=== PATIENT | male | born 1965 | race Caucasian/White ===

== ENCOUNTER 2018-10-21 18:17 | Emergency (ER) | payer OTHER ==
--- NOTE | 2018-10-21 18:46 | EDM.PDOC ---
ED HPI GENERAL MEDICAL PROBLEM - General Chief Complaint: Laceration Stated Complaint: UNKNOWN Time Seen by Provider: 10/21/18 18:30 Source of Information: Reports: Patient History Limitations: Reports: No Limitations - History of Present Illness INITIAL COMMENTS - FREE TEXT/NARRATIVE: HISTORY AND PHYSICAL: History of present illness: Patient is a 53-year-old male here with complaint of left toe injury. He states that he was in the shower when his foot slipped and he cut his left toe on the drain. He is not sure if there is a laceration or if the toenail itself lifted up. He is on plavix and states it wouldn't stop bleeding so he wrapped it in a towel and came to the ED. He is otherwise in his usual state of health without any complaints. He is UTD on tetanus. Review of systems: As per history of present illness and below otherwise all systems reviewed and negative. Past medical history: As per history of present illness and as reviewed below otherwise noncontributory. Surgical history: As per history of present illness and as reviewed below otherwise noncontributory. Social history: No reported history of drug or alcohol abuse. Family history: As per history of present illness and as reviewed below otherwise noncontributory. Physical exam: General: Patient sitting comfortably in no acute distress and nontoxic appearing HEENT: Atraumatic, normocephalic, pupils reactive, negative for conjunctival pallor or scleral icterus, mucous membranes moist, throat clear, neck supple, nontender, trachea midline. No meningeal signs. Lungs: Clear to auscultation, breath sounds equal bilaterally, chest nontender. Heart: S1S2, regular, negative for clicks, rubs, or overt murmur. Abdomen: Soft, nondistended, nontender. Negative for masses or hepatosplenomegaly. Negative for costovertebral tenderness. No rigidity, rebound , guarding. Pelvis: Stable nontender. Genitourinary: Deferred. Rectal: Deferred. Extremities: The right toenail appears to be avulsed, there is no obvious laceration. It is no longer bleeding. negative for cords or calf pain. Neurovascular unremarkable. Neuro: Awake, alert, oriented. Cranial nerves II through XII unremarkable. Cerebellum unremarkable. Motor and sensory unremarkable throughout. Exam nonfocal. Notes: Diagnostics: None Therapeutics: Compression bandage Prescriptions: None Impression: Toenail avulsion Plan: 1. Follow up with primary care provider 2. Return to ED as needed as discussed Definitive disposition and diagnosis as appropriate pending reevaluation and review of above. Right Big Toe Pain Score (Numeric/FACES): 2 - Related Data Allergies Allergy/AdvReac Type Severity Reaction Status Date / Time Penicillins Allergy Rash Verified 10/21/18 18:23 Sulfa (Sulfonamide Allergy Rash Verified 10/21/18 18:23 Antibiotics) Home Meds: Home Meds Cetirizine [ZyrTEC] 10 mg PO DAILY 10/21/18 [History] Furosemide [Lasix] 40 mg PO DAILY 10/21/18 [History] Montelukast Sodium [Singulair] 10 mg PO DAILY 10/21/18 [History] Omeprazole Magnesium [Prilosec Otc] 20 mg PO DAILY 10/21/18 [History] Potassium Gluconate [Potassium] 600 mg PO DAILY 10/21/18 [History] Propranolol [Inderal] 10 mg PO DAILY 10/21/18 [History] Rivaroxaban [Xarelto] 10 mg PO DAILY 10/21/18 [History] atorvaSTATin Calcium [Lipitor] 40 mg PO DAILY 10/21/18 [History] buPROPion [Wellbutrin] 100 mg PO BID 10/21/18 [History] ED ROS GENERAL - Review of Systems Review Of Systems: ROS reveals no pertinent complaints other than HPI. ED EXAM, SKIN/RASH Exam: See Below (see dictation) Course - Vital Signs Last Recorded V/S: Last Vital Signs Temp 98.0 F 10/21/18 18:24 Pulse 72 10/21/18 19:25 Resp 18 10/21/18 18:24 BP 156/97 H 10/21/18 19:25 Pulse Ox 94 L 10/21/18 19:25 Departure - Departure Time of Disposition: 18:45 Disposition: Home, Self-Care 01 Condition: Good Clinical Impression: Injury of toenail - Discharge Information Instructions: Nail Bed Injury, [id number] Referrals: PCP,None [Primary Care Provider] - Forms: ED Department Discharge Additional Instructions: The following information is given to patients seen in the emergency department who are being discharged to home. This information is to outline your options for follow-up care. We provide all patients seen in our emergency department with a follow-up referral. The need for follow-up, as well as the timing and circumstances, are variable depending upon the specifics of your emergency department visit. If you don't have a primary care physician on staff, we will provide you with a referral. We always advise you to contact your personal physician following an emergency department visit to inform them of the circumstance of the visit and for follow-up with them and/or the need for any referrals to a consulting specialist. The emergency department will also refer you to a specialist when appropriate. This referral assures that you have the opportunity for follow-up care with a specialist. All of these measure are taken in an effort to provide you with optimal care, which includes your follow-up. Under all circumstances we always encourage you to contact your private physician who remains a resource for coordinating your care. When calling for follow-up care, please make the office aware that this follow-up is from your recent emergency room visit. If for any reason you are refused follow-up, please contact the [facility] Emergency Department at and asked to speak to the emergency department charge nurse. [facility] Primary Care [address] [place] [address] [id number] [address] [address] 1. Follow up with primary care provider 2. Return to ED as needed as discussed
== END 2018-10-21 19:25 | disposition home or self-care (01) ==
LOC: MW.ED 18:17
DX: S91.209A Unspecified open wound of unspecified toe(s) with damage to nail, initial encounter (principal); Z88.0 Allergy status to penicillin; Z88.2 Allergy status to sulfonamides; Z79.899 Other long term (current) drug therapy; W18.40XA Slipping, tripping and stumbling without falling, unspecified, initial encounter
CPT/HCPCS: 99282

== ENCOUNTER 2019-08-05 13:33 | Emergency (ER) | payer OTHER ==
[2019-08-05] MEDS ORDERED: Diphtheria,Pertussis(Acell),Tetanus Vaccine 0.5 ML Syringe IM ONE (13:49)
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
--- NOTE | 2019-08-05 14:45 | CR ---
Right hand: Three views of the right hand were obtained. Comparison: No previous hand exam. Joint spaces are preserved. No fracture, dislocation or other bony abnormality is seen. No radiopaque foreign object is seen. Impression: 1. Nothing acute is appreciated on three-view right hand exam. Diagnostic code #1 This report was dictated in [place] Standard Time
== END 2019-08-05 15:08 | disposition home or self-care (01) ==
LOC: MW.ED 13:33
DX: S61.230A Puncture wound without foreign body of right index finger without damage to nail, initial encounter (principal); Z88.2 Allergy status to sulfonamides; Z88.0 Allergy status to penicillin; Z79.899 Other long term (current) drug therapy; Z23 Encounter for immunization; W26.9XXA Contact with unspecified sharp object(s), initial encounter
CPT/HCPCS: 73130-26-RT; 73130-RT; 90471; 90715; 99283-25

== ENCOUNTER 2019-08-09 07:38 | Emergency (ER) | payer OTHER ==
[2019-08-09] MEDS ORDERED: Sodium Chloride 0.9% 1,000 ML IV ONE (08:11)
[2019-08-09] MEDS ORDERED: guaiFENesin 600 MG Tab.ER PO ONE ×2 (08:11→08:30)
--- NOTE | 2019-08-09 08:12 | EDM.PDOC ---
ED HPI GENERAL MEDICAL PROBLEM - General Chief Complaint: Respiratory Problem Stated Complaint: FEVER, POSSIBLE PNEUMONIA Time Seen by Provider: 08/09/19 08:00 Source of Information: Reports: Patient History Limitations: Reports: No Limitations - History of Present Illness INITIAL COMMENTS - FREE TEXT/NARRATIVE: This 54 year old male presents to the ED with a chief complaint of increasing coughing over the past 4 days. Non-productive cough. He states that he had a temp of 102 degrees F but has gone down with treatment. He states that he has not been drinking fluids except enough to take his medications and that he feels somewhat dehydrated. He has a history of PE in 2013 and has been on Xarelto daily every since. He denies any other symptoms. Onset: Gradual Duration: Day(s): (4 days.) Location: Reports: Chest Quality: Reports: Other (chest discomfort with coughing since Friday (4 days).) Severity: Mild (mild to moderate.) Improves with: Reports: None Worsens with: Reports: None Associated Symptoms: Reports: Cough, Fever/Chills, Loss of Appetite, Malaise, Weakness. Denies: cough w sputum epigastric Pain Score (Numeric/FACES): 5 - Related Data Allergies Allergy/AdvReac Type Severity Reaction Status Date / Time Penicillins Allergy Rash Verified 08/09/19 07:54 Sulfa (Sulfonamide Allergy Rash Verified 08/09/19 07:54 Antibiotics) Home Meds: Home Meds Cetirizine [ZyrTEC] 10 mg PO DAILY 10/21/18 [History] Furosemide [Lasix] 40 mg PO DAILY 10/21/18 [History] Montelukast Sodium [Singulair] 10 mg PO DAILY 10/21/18 [History] Omeprazole Magnesium [Prilosec Otc] 20 mg PO DAILY 10/21/18 [History] Potassium Gluconate [Potassium] 600 mg PO DAILY 10/21/18 [History] Propranolol [Inderal] 10 mg PO DAILY 10/21/18 [History] Rivaroxaban [Xarelto] 10 mg PO DAILY 10/21/18 [History] atorvaSTATin Calcium [Lipitor] 40 mg PO DAILY 10/21/18 [History] buPROPion [Wellbutrin] 100 mg PO BID 10/21/18 [History] Sulfamethoxazole/Trimethoprim [Bactrim Ds Tablet] 1 each PO BID #20 tablet 12/19 /19 [Rx] Past Medical History HEENT History: Reports: Impaired Vision Cardiovascular History: Reports: High Cholesterol Respiratory History: Reports: PE Gastrointestinal History: Reports: None Genitourinary History: Reports: None Musculoskeletal History: Reports: None Neurological History: Reports: None Psychiatric History: Reports: None Endocrine/Metabolic History: Reports: None Hematologic History: Reports: None Immunologic History: Reports: None Oncologic (Cancer) History: Reports: None Dermatologic History: Reports: None - Infectious Disease History Infectious Disease History: Reports: Chicken Pox - Past Surgical History Head Surgeries/Procedures: Reports: None HEENT Surgical History: Reports: None Cardiovascular Surgical History: Reports: None Respiratory Surgical History: Reports: None GI Surgical History: Reports: None Male Surgical History: Reports: None Endocrine Surgical History: Reports: None Neurological Surgical History: Reports: None Musculoskeletal Surgical History: Reports: Other (See Below) Other Musculoskeletal Surgeries/Procedures:: L5-S1 fusion Oncologic Surgical History: Reports: None Dermatological Surgical History: Reports: None Social & Family History - Family History Family Medical History: Noncontributory - Tobacco Use Smoking Status *Q: Never Smoker Second Hand Smoke Exposure: No - Caffeine Use Caffeine Use: Reports: None - Recreational Drug Use Recreational Drug Use: No ED ROS GENERAL - Review of Systems Review Of Systems: See Below Constitutional: Reports: Malaise, Weakness, Fatigue HEENT: Reports: No Symptoms Respiratory: Reports: Cough Cardiovascular: Reports: Chest Pain (mid chest discomfort.) Endocrine: Reports: No Symptoms GI/Abdominal: Reports: No Symptoms : Reports: No Symptoms Musculoskeletal: Reports: No Symptoms Skin: Reports: No Symptoms Neurological: Reports: No Symptoms Psychiatric: Reports: No Symptoms Hematologic/Lymphatic: Reports: No Symptoms ED EXAM, GENERAL - Physical Exam Exam: See Below Free Text/Narrative:: This 54 year old male presents to the ED with a chief complaint of increasing coughing over the past 4 days. Non-productive cough. He states that he had a temp of 102 degrees F but has gone down with treatment. He states that he has not been drinking fluids except enough to take his medications and that he feels somewhat dehydrated. He has a history of PE in 2014 and has been on Xarelto daily every since. He denies any other symptoms. Exam Limited By: No Limitations General Appearance: Alert, WD/WN, Lethargic (slightly), Mild Distress Eye Exam: Bilateral Eye: Normal Fundi, Normal Inspection, PERRL Ears: Normal External Exam, Normal Canal, Hearing Grossly Normal, Normal TMs Ear Exam: Bilateral Ear: Auricle Normal, Canal Normal, TM normal Nose: Normal Inspection, Normal Mucosa, No Blood Throat/Mouth: Normal Inspection, Normal Lips, Normal Teeth, Normal Gums, Normal Oropharynx, Normal Voice, No Airway Compromise Head: Atraumatic, Normocephalic Neck: Normal Inspection, Supple, Non-Tender, Full Range of Motion Respiratory/Chest: No Respiratory Distress, Lungs Clear, Normal Breath Sounds. No: Crackles, Rales, Rhonchi, Wheezing Cardiovascular: Normal Peripheral Pulses, Regular Rate, Rhythm, No Edema, No Gallop, No JVD, No Murmur, No Rub Peripheral Pulses: 3+: Carotid (L), Radial (L), Radial (R), Dorsalis Pedis (L), Dorsalis Pedis (R), 4+: Carotid (R) GI/Abdominal: Normal Bowel Sounds, Soft, Non-Tender, No Organomegaly, No Distention, No Abnormal Bruit, No Mass Back Exam: Normal Inspection, Full Range of Motion, NT Extremities: Normal Inspection, Normal Range of Motion, Non-Tender, Normal Capillary Refill, No Pedal Edema Neurological: Alert, Oriented, CN II-XII Intact, Normal Cognition, Normal Gait, Normal Reflexes, No Motor/Sensory Deficits Psychiatric: Normal Affect, Normal Mood Skin Exam: Warm, Dry, Intact, Normal Color, No Rash Lymphatic: No Adenopathy Course - Vital Signs Text/Narrative:: I reviewed all of the patients lab and x-ray studies with the patient. On re- evaluation he is much improved and states that he feels much better since his fluid bolus. His physical exam re-eval is totally unremarkable. I discussed with him my plan of action (discharge) and he agrees. He will be discharged Last Recorded V/S: Last Vital Signs Temp 100.5 F 08/09/19 07:55 Pulse 88 08/09/19 07:55 Resp 18 08/09/19 07:55 BP 137/70 08/09/19 07:55 Pulse Ox 98 08/09/19 07:55 - Orders/Labs/Meds Orders: Active Orders 24 hr Category Date Time Status EKG 12 Lead [EKG Documentation Completion] [RC] STAT Care 08/09/19 08:21 Active Labs: Laboratory Tests 08/09/19 08/09/19 08/09/19 Range/Units 08:25 08:25 08:25 WBC 3.93 L (4.0-11.0) K/uL RBC 4.95 (4.50-5.90) M/uL Hgb 14.1 (13.0-17.0) g/dL Hct 41.4 (38.0-50.0) % MCV 83.6 (80.0-98.0) fL MCH 28.5 (27.0-32.0) pg MCHC 34.1 (31.0-37.0) g/dL RDW Std Deviation 46.0 (28.0-62.0) fl RDW Coeff of Corina 15 (11.0-15.0) % Plt Count 160 (150-400) K/uL MPV 9.80 (7.40-12.00) fL Neut % (Auto) 76.5 (48.0-80.0) % Lymph % (Auto) 8.4 L (16.0-40.0) % [place] % (Auto) 5.1 (0.0-15.0) % Eos % (Auto) 9.7 H (0.0-7.0) % Baso % (Auto) 0.3 (0.0-1.5) % Neut # (Auto) 3.0 (1.4-5.7) K/uL Lymph # (Auto) 0.3 L (0.6-2.4) K/uL [place] # (Auto) 0.2 (0.0-0.8) K/uL Eos # (Auto) 0.4 (0.0-0.7) K/uL Baso # (Auto) 0.0 (0.0-0.1) K/uL Nucleated RBC % 0.0 /100WBC Nucleated RBCs # 0 K/uL Sodium 138 (136-148) mmol/L Potassium 3.7 (3.5-5.1) mmol/L Chloride 104 (98-107) mmol/L Carbon Dioxide 22.1 (21.0-32.0) mmol/L BUN 13 (7.0-18.0) mg/dL Creatinine 1.4 H (0.8-1.3) mg/dL Est Cr Clr Drug Dosing 72.09 mL/min Estimated GFR (MDRD) 52.8 ml/min Glucose 106 (74-106) mg/dL Calcium 8.6 (8.5-10.1) mg/dL Total Bilirubin 0.3 (0.2-1.0) mg/dL AST 36 (15-37) IU/L ALT 44 (14-63) IU/L Alkaline Phosphatase 143 H (46-116) U/L Troponin I < 0.050 (0.000-0.056) ng/mL Total Protein 7.4 (6.4-8.2) g/dL Albumin 3.2 L (3.4-5.0) g/dL Globulin 4.2 H (2.6-4.0) g/dL Albumin/Globulin Ratio 0.8 L (0.9-1.6) Meds: Medications Discontinued Medications Generic Name Dose Route Start Last Admin Trade Name Freq PRN Reason Stop Dose Admin Guaifenesin 1,200 mg 08/09/19 08:11 08/09/19 08:25 Mucinex PO 08/09/19 08:12 1,200 mg ONETIME ONE Administration Guaifenesin 1,200 mg 08/09/19 08:30 08/09/19 08:25 Mucinex PO 08/09/19 08:31 Not Given ONETIME ONE Sodium Chloride 1,000 mls @ 1,000 mls/hr 08/09/19 08:11 08/09/19 08:25 Normal Saline IV 08/09/19 09:10 1,000 mls/hr .Bolus ONE Administration Ondansetron HCl 4 mg 08/09/19 08:43 08/09/19 08:51 Zofran IVPUSH 08/09/19 08:44 4 mg ONETIME ONE Administration Departure - Departure Time of Disposition: 10:28 Disposition: Home, Self-Care 01 Clinical Impression: Viral syndrome - Discharge Information *PRESCRIPTION DRUG MONITORING PROGRAM REVIEWED*: Yes *COPY OF PRESCRIPTION DRUG MONITORING REPORT IN PATIENT MILES: Yes Instructions: Hand Washing, [id number], Viral Illness, Adult Referrals: Anastasia Cortez DO [Primary Care Provider] - Forms: ED Department Discharge Additional Instructions: Follow up with your PCP in two to four days. Drink plenty of clear liquids for the next three days. Return to the ED if your condition gets worse. Rest for the next two days. Sepsis Event Note - Evaluation Sepsis Screening Result: No Definite Risk - Focused Exam Vital Signs: Vital Signs Temp Pulse Resp BP Pulse Ox 08/09/19 07:55 100.5 F 88 18 137/70 98 Date Exam was Performed: 08/09/19 Time Exam was Performed: 10:28 - My Orders Last 24 Hours: My Active Orders 08/09/19 08:21 EKG 12 Lead [EKG Documentation Completion] [RC] STAT - Assessment/Plan Last 24 Hours: My Active Orders 08/09/19 08:21 EKG 12 Lead [EKG Documentation Completion] [RC] STAT
[2019-08-09] MEDS ORDERED: Ondansetron 4 MG/2 ML SDV IVPUSH ONE (08:43)
[2019-08-09 08:58] LABS: CARBON DIOXIDE,CO2 22.1 mmol/L (21.0-32.0); POTASSIUM,K 3.7 mmol/L (3.5-5.1)
--- NOTE | 2019-08-09 09:04 | CR ---
INDICATION: Cough TECHNIQUE: Chest 2 views COMPARISON: October 08, 2018 FINDINGS: Cardiovascular and mediastinum: Heart size and vasculature are normal in caliber and appearance. Lungs and pleural spaces: Lungs are clear. No sign of infiltrate or mass. No sign of pleural effusion. No pneumothorax. Bones and soft tissues: No significant findings. IMPRESSION: No acute findings and no significant changes from the prior exam. Dictated by Janak Carrillo MD @ Aug 09 2019 9:01AM Signed by Dr. Janak Carrillo @ Aug 09 2019 9:02AM
== END 2019-08-09 11:09 | disposition home or self-care (01) ==
LOC: MW.ED 07:38
DX: B34.9 Viral infection, unspecified (principal); E78.00 Pure hypercholesterolemia, unspecified; Z86.711 Personal history of pulmonary embolism; Z79.01 Long term (current) use of anticoagulants; Z88.0 Allergy status to penicillin; Z88.2 Allergy status to sulfonamides; Z79.899 Other long term (current) drug therapy
CPT/HCPCS: 36415; 71046; 80053; 84484; 85025; 87804; 93005; 96361; 96374; 99285; A9270; J2405; J7030

== ENCOUNTER 2019-08-11 11:44 | Emergency (ER) | payer OTHER ==
--- NOTE | 2019-08-11 11:54 | EDM.PDOC ---
ED HPI GENERAL MEDICAL PROBLEM - General Chief Complaint: Allergic Reaction Stated Complaint: ALLERGIC REACTION Time Seen by Provider: 08/11/19 11:54 Source of Information: Reports: Patient History Limitations: Reports: No Limitations - History of Present Illness INITIAL COMMENTS - FREE TEXT/NARRATIVE: Patient is a 54-year-old male who is complaining of having a rash that is been present for the last several days. Patient was started last Friday on Bactrim even though he is urgent to sulfa medications. Patient's rash is mainly on his torso worse on his neck and scalp area. Days he was unable to sleep secondary to the rash. He has not noted any swelling to his oropharynx and no trouble breathing. He has not been nauseous or vomiting has had no diarrhea. Is on Bactrim for having paper cut type injury to his fingers and apparently for a prophylactic treatment. See any sign of cellulitis to his fingers or hand. Duration: Day(s): (2 days worse since last night) Location: Reports: Head, Face, Neck, Chest, Back Severity: Moderate Improves with: Reports: None Worsens with: Reports: None Context: Reports: Other (Secondary to being on Bactrim with known sulfa allergy. 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 (see below) (Patient has been using Benadryl last dose at 9 PM approximately 3 hours prior to arrival.) - Related Data Allergies Allergy/AdvReac Type Severity Reaction Status Date / Time Penicillins Allergy Rash Verified 08/11/19 11:54 Sulfa (Sulfonamide Allergy Rash Verified 08/11/19 11:54 Antibiotics) Home Meds: Home Meds Cetirizine [ZyrTEC] 10 mg PO DAILY 10/21/18 [History] Furosemide [Lasix] 40 mg PO DAILY 10/21/18 [History] Montelukast Sodium [Singulair] 10 mg PO DAILY 10/21/18 [History] Omeprazole Magnesium [Prilosec Otc] 20 mg PO DAILY 10/21/18 [History] Potassium Gluconate [Potassium] 600 mg PO DAILY 10/21/18 [History] Propranolol [Inderal] 10 mg PO DAILY 10/21/18 [History] Rivaroxaban [Xarelto] 10 mg PO DAILY 10/21/18 [History] atorvaSTATin Calcium [Lipitor] 40 mg PO DAILY 10/21/18 [History] buPROPion [Wellbutrin] 100 mg PO BID 10/21/18 [History] Sulfamethoxazole/Trimethoprim [Bactrim Ds Tablet] 1 each PO BID #20 tablet 08/05 [Rx] Past Medical History HEENT History: Reports: Impaired Vision Cardiovascular History: Reports: High Cholesterol Respiratory History: Reports: PE Gastrointestinal History: Reports: None Genitourinary History: Reports: None Musculoskeletal History: Reports: None Neurological History: Reports: None Psychiatric History: Reports: None Endocrine/Metabolic History: Reports: None Hematologic History: Reports: None Immunologic History: Reports: None Oncologic (Cancer) History: Reports: None Dermatologic History: Reports: None - Infectious Disease History Infectious Disease History: Reports: Chicken Pox - Past Surgical History Head Surgeries/Procedures: Reports: None HEENT Surgical History: Reports: None Cardiovascular Surgical History: Reports: None Respiratory Surgical History: Reports: None GI Surgical History: Reports: None Male Surgical History: Reports: None Endocrine Surgical History: Reports: None Neurological Surgical History: Reports: None Musculoskeletal Surgical History: Reports: Other (See Below) Other Musculoskeletal Surgeries/Procedures:: L5-S1 fusion Oncologic Surgical History: Reports: None Dermatological Surgical History: Reports: None Social & Family History - Family History Family Medical History: Noncontributory - Caffeine Use Caffeine Use: Reports: None ED ROS ALLERGIC REACTION - Review of Systems Review Of Systems: See Below Constitutional: Reports: No Symptoms. Denies: Fever, Chills HEENT: Reports: No Symptoms. Denies: Throat Swelling Respiratory: Reports: No Symptoms Cardiovascular: Reports: No Symptoms GI/Abdominal: Reports: No Symptoms Musculoskeletal: Reports: No Symptoms Skin: Reports: Pruritis, Rash Neurological: Reports: No Symptoms Psychiatric: Reports: No Symptoms ED EXAM GENERAL NO PERIP PULSE - Physical Exam Exam: See Below Exam Limited By: No Limitations General Appearance: Alert, No Apparent Distress Throat/Mouth: Normal Inspection, Normal Oropharynx Head: Atraumatic, Normocephalic Neck: Normal Inspection, Supple Respiratory/Chest: No Respiratory Distress, Lungs Clear, Normal Breath Sounds Cardiovascular: Normal Peripheral Pulses, Regular Rate, Rhythm, No Edema GI/Abdominal: Normal Bowel Sounds, Soft Back Exam: Normal Inspection Extremities: Normal Inspection Neurological: Alert Psychiatric: Normal Affect Skin Exam: Rash Course - Vital Signs Last Recorded V/S: Last Vital Signs Temp 36.5 C 08/11/19 11:52 Pulse 79 08/11/19 11:52 Resp 18 08/11/19 11:52 BP 124/71 08/11/19 11:52 Pulse Ox 95 08/11/19 11:52 - Orders/Labs/Meds Meds: Medications Discontinued Medications Generic Name Dose Route Start Last Admin Trade Name Tin PRN Reason Stop Dose Admin Famotidine 40 mg 08/11/19 12:03 08/11/19 12:19 Pepcid PO 08/11/19 12:04 40 mg ONETIME ONE Administration Prednisone 40 mg 08/12/19 08:00 Prednisone PO WITHBREAKFAST KOREY Prednisone 40 mg 08/11/19 12:14 08/11/19 12:19 Prednisone PO 08/11/19 12:15 40 mg NOW STA Administration - Re-Assessments/Exams Free Text/Narrative Re-Assessment/Exam: 08/11/19 12:52 Patient has mildly improved. 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 He is to return to emergency department if symptoms worsen. Departure - Departure Time of Disposition: 12:53 Disposition: Home, Self-Care 01 Condition: Good Clinical Impression: Allergic drug rash - Discharge Information Referrals: Anastasia Cortez DO [Primary Care Provider] - Forms: ED Department Discharge Additional Instructions: The following information is given to patients seen in the emergency department who are being discharged to home. This information is to outline your options for follow-up care. We provide all patients seen in our emergency department with a follow-up referral. The need for follow-up, as well as the timing and circumstances, are variable depending upon the specifics of your emergency department visit. If you don't have a primary care physician on staff, we will provide you with a referral. We always advise you to contact your personal physician following an emergency department visit to inform them of the circumstance of the visit and for follow-up with them and/or the need for any referrals to a consulting specialist. The emergency department will also refer you to a specialist when appropriate. This referral assures that you have the opportunity for follow-up care with a specialist. All of these measure are taken in an effort to provide you with optimal care, which includes your follow-up. Under all circumstances we always encourage you to contact your private physician who remains a resource for coordinating your care. When calling for follow-up care, please make the office aware that this follow-up is from your recent emergency room visit. If for any reason you are refused follow-up, please contact the [facility] Emergency Department at and asked to speak to the emergency department charge nurse. Sepsis Event Note - Focused Exam Vital Signs: Vital Signs Temp Pulse Resp BP Pulse Ox 08/11/19 11:52 36.5 C 79 18 124/71 95 Date Exam was Performed: 08/11/19 Time Exam was Performed: 12:46
[2019-08-11] MEDS ORDERED: Famotidine 20 MG Tab PO ONE (12:03)
[2019-08-11] MEDS ORDERED: predniSONE 20 MG Tab PO STA (12:14)
[2019-08-12] MEDS ORDERED: predniSONE 20 MG Tab PO SCH (08:00)
== END 2019-08-11 13:15 | disposition home or self-care (01) ==
LOC: MW.ED 11:44
DX: L27.1 Localized skin eruption due to drugs and medicaments taken internally (principal); T36.8X5A Adverse effect of other systemic antibiotics, initial encounter; T37.0X5A Adverse effect of sulfonamides, initial encounter; E78.00 Pure hypercholesterolemia, unspecified; Z88.0 Allergy status to penicillin; Z88.2 Allergy status to sulfonamides; Z79.899 Other long term (current) drug therapy
CPT/HCPCS: 99282; A9270; 99283

== ENCOUNTER 2019-08-12 03:07 | Emergency (ER) | payer OTHER ==
[2019-08-12] MEDS ORDERED: diphenhydrAMINE 50 MG Cap PO ONE (03:32)
[2019-08-12] MEDS ORDERED: methylPREDNISolone Sodium Succinate 125 MG/2 ML SDV IV STA (03:37)
[2019-08-12] MEDS ORDERED: Famotidine 20 MG/2 ML SDV IVPUSH ONE (03:39)
[2019-08-12] MEDS ORDERED: diphenhydrAMINE 50 MG/ML SDV IVPUSH ONE (03:40)
[2019-08-12] MEDS ORDERED: methylPREDNISolone Sodium Succinate 125 MG/2 ML SDV ONE (03:43)
[2019-08-12] MEDS ORDERED: hydrOXYzine Pamoate 25 MG Cap PO ONE (04:11)
--- NOTE | 2019-08-12 04:28 | EDM.PDOC ---
ED HPI GENERAL MEDICAL PROBLEM - General Chief Complaint: Allergic Reaction Stated Complaint: POSSIBLE ALLERGIC REACTION Time Seen by Provider: 08/12/19 03:29 Source of Information: Reports: Patient - History of Present Illness INITIAL COMMENTS - FREE TEXT/NARRATIVE: -57 year-old gentleman presents the emergency room chief complaint of allergic reaction. Patient has received Bactrim as taken for 7 days and has patches on his ears and back. Patient has no signs of wheezing or anaphylaxis at this time. Has taken Benadryl with no relief Onset: Gradual Duration: Day(s): (3), Getting Worse Location: Reports: Head, Face, Neck Severity: Mild Improves with: Reports: None Worsens with: Reports: None Associated Symptoms: Reports: No Other Symptoms - Related Data Allergies Allergy/AdvReac Type Severity Reaction Status Date / Time Penicillins Allergy Rash Verified 08/12/19 03:18 Sulfa (Sulfonamide Allergy Rash Verified 08/12/19 03:18 Antibiotics) Home Meds: Home Meds Cetirizine [ZyrTEC] 10 mg PO DAILY 10/21/18 [History] Furosemide [Lasix] 40 mg PO DAILY 10/21/18 [History] Montelukast Sodium [Singulair] 10 mg PO DAILY 10/21/18 [History] Omeprazole Magnesium [Prilosec Otc] 20 mg PO DAILY 10/21/18 [History] Potassium Gluconate [Potassium] 600 mg PO DAILY 10/21/18 [History] Propranolol [Inderal] 10 mg PO DAILY 10/21/18 [History] Rivaroxaban [Xarelto] 10 mg PO DAILY 10/21/18 [History] atorvaSTATin Calcium [Lipitor] 40 mg PO DAILY 10/21/18 [History] buPROPion [Wellbutrin] 100 mg PO BID 10/21/18 [History] Past Medical History HEENT History: Reports: Impaired Vision Cardiovascular History: Reports: High Cholesterol Respiratory History: Reports: PE Gastrointestinal History: Reports: None Genitourinary History: Reports: None Musculoskeletal History: Reports: None Neurological History: Reports: None Psychiatric History: Reports: None Endocrine/Metabolic History: Reports: None Hematologic History: Reports: None Immunologic History: Reports: None Oncologic (Cancer) History: Reports: None Dermatologic History: Reports: None - Infectious Disease History Infectious Disease History: Reports: Chicken Pox - Past Surgical History Head Surgeries/Procedures: Reports: None Cardiovascular Surgical History: Reports: None Respiratory Surgical History: Reports: None GI Surgical History: Reports: None Male Surgical History: Reports: None Endocrine Surgical History: Reports: None Neurological Surgical History: Reports: None Musculoskeletal Surgical History: Reports: Other (See Below) Other Musculoskeletal Surgeries/Procedures:: L5-S1 fusion Oncologic Surgical History: Reports: None Dermatological Surgical History: Reports: None Social & Family History - Family History Family Medical History: Noncontributory - Tobacco Use Smoking Status *Q: Never Smoker - Caffeine Use Caffeine Use: Reports: None - Recreational Drug Use Recreational Drug Use: No ED ROS ALLERGIC REACTION - Review of Systems Review Of Systems: See Below Constitutional: Reports: No Symptoms HEENT: Reports: No Symptoms Respiratory: Reports: No Symptoms Cardiovascular: Reports: No Symptoms Endocrine: Reports: No Symptoms GI/Abdominal: Reports: No Symptoms : Reports: No Symptoms Musculoskeletal: Reports: No Symptoms Skin: Reports: Pruritis, Rash Neurological: Reports: No Symptoms Hematologic/Lymphatic: Reports: No Symptoms Immunologic: Reports: No Symptoms, Seasonal Allergy. Denies: Anaphylaxis ED EXAM GENERAL NO PERIP PULSE - Physical Exam Exam: See Below Text/Narrative:: He has a rash over his back also along his ears. HEENT Benefits of blisters along the mouth or oral mucosa Lungs: Clear to auscultation no signs of wheezing. Abdomen Nontender Skin: Patient has a macular papular rash along the upper back Course - Vital Signs Last Recorded V/S: Last Vital Signs Temp 96.2 F 08/12/19 03:13 Pulse 76 08/12/19 03:13 Resp 18 08/12/19 03:13 BP 148/79 H 08/12/19 03:13 Pulse Ox 95 08/12/19 03:13 Can insist that oral medication is not working therefore he has been started on IV Benadryl 50 mg is taking p.o. hydralazine. Also given Solu-Medrol 125 mg IV Patient states he is improved slig patient has no signs of anaphylaxis Charge patient on oatmeal bath Pepcid. - Orders/Labs/Meds Meds: Medications Discontinued Medications Generic Name Dose Route Start Last Admin Trade Name Tin PRN Reason Stop Dose Admin Diphenhydramine HCl 50 mg 08/12/19 03:40 08/12/19 03:45 Benadryl IVPUSH 08/12/19 03:41 50 mg ONETIME ONE Administration Famotidine 20 mg 08/12/19 03:39 08/12/19 03:45 Pepcid IVPUSH 08/12/19 03:40 20 mg ONETIME ONE Administration Hydroxyzine Pamoate 25 mg 08/12/19 04:11 08/12/19 04:19 Vistaril PO 08/12/19 04:12 25 mg ONETIME ONE Administration Methylprednisolone Sodium Succinate 125 mg 08/12/19 03:37 08/12/19 03:45 Solu-Medrol IV 08/12/19 03:38 125 mg NOW STA Administration Methylprednisolone Sodium Succinate Confirm 08/12/19 03:43 08/12/19 03:56 Solu-Medrol Administered 08/12/19 03:44 Not Given Dose 125 mg .ROUTE .STK-MED ONE Departure - Departure Time of Disposition: 04:30 Disposition: Home, Self-Care 01 Condition: Good Clinical Impression: Allergic dermatitis - Discharge Information Instructions: Allergies, Adult, [id number] Referrals: PCP,None [Primary Care Provider] - Care Plan Goals: Patient is a take new medication as prescribed Patient to follow-up with primary care physician. Return for any problems i.e. shortness of breath wheezing rapid heart rate Sepsis Event Note - Evaluation Sepsis Screening Result: No Definite Risk - Focused Exam Vital Signs: Vital Signs Temp Pulse Resp BP Pulse Ox 08/12/19 03:13 96.2 F 76 18 148/79 H 95 Date Exam was Performed: 08/12/19 Time Exam was Performed: 04:22
[2019-08-12] MEDS ORDERED: predniSONE 20 MG Tab PO SCH (08:00)
== END 2019-08-12 04:55 | disposition home or self-care (01) ==
LOC: MW.ED 03:07
DX: L23.9 Allergic contact dermatitis, unspecified cause (principal); E78.00 Pure hypercholesterolemia, unspecified; Z86.711 Personal history of pulmonary embolism; Z88.0 Allergy status to penicillin; Z88.2 Allergy status to sulfonamides; Z79.899 Other long term (current) drug therapy; Z79.01 Long term (current) use of anticoagulants
CPT/HCPCS: 96374; 96375; 99283; A9270; J1200; J2930; S0028; 99282; J3490